=== PATIENT | female | born 1980 | race Caucasian/White ===

== ENCOUNTER 2018-10-12 20:28 | Outpatient (CLI) | payer OTHER | END 2018-10-12 20:29 | disposition home or self-care (01) | LOC: SC 20:28 | PROVIDERS: ATTEND Internal Medicine Pulmonary Disease | DX: R06.83 Snoring (principal) | CPT/HCPCS: 95810 ==

== ENCOUNTER 2018-11-17 13:35 | Outpatient (CLI) | payer OTHER ==
--- NOTE | 2018-11-17 16:17 | SLEEP CARE CONSULTATION ---
Information from patient questionnaire entered by Ana Hurd. I have reviewed and concur with the information entered by Ana Hurd. This document represents the service I personally performed and the decisions made by me, Sade Whaley RN, MSN, [employer]. History of Present Illness Initial [place] Sleepiness Scale score: 16 Current [place] Sleepiness Scale score: 13 Additional HPI information: ATILIO NAGEL returns for follow up of the recently performed polysomnography and patient was informed of the polysomnography findings. I explained the pathophysiology behind obstructive sleep apnea. Patient does not have sleep apnea and was advised how weight gain could increase the risk of developing sleep apnea in the future. She is currently at normal BMI weight. [ Patient has rare and light snoring. Snoring can be reduced by weight loss. Snoring can also be treated with an oral appliance from a dentist. If this is considered she is advised to check insurance coverage. I also have a list of accredited dentists if needed. In addition, an ENT evaluation can be do to see if other treatment is indicated. Currently patient states she has no problem breathing out of nose except when seasonal allergies. Patient counseled not drink alcohol less than 4 hours before bedtime as it can increase snoring and apnea. Patient does not drink alcohol. Patient was cautioned about risks of drowsy driving until sleepiness symptoms resolve. Patient denies drowsy driving. [facility] patient education on snoring and sleep apnea given and reviewed. Sleep Study - Polysomnography Polysomnography findings: The quality of the study is good. The patient had normal sleep efficiency. The sleep architecture was normal. Respiratory monitoring showed no significant sleep disordered breathing (AHI = 0.0) or hypoxia (helene oxygen saturation of 94 %). The patient slept adequately in supine position (supine AHI = 0.0; non- supine = 0.00). Snore was rare and light in intensity. There was no significant periodic leg movement of sleep. Cardiac rhythm was normal sinus rhythm without significant arrhythmia. No abnormal behavior (parasomnia) observed during the night. Allergies and Home Medications Known drug allergies: No Home medication list reviewed: Yes (none) Review of Systems Review of systems same as previous: Yes Physical Exam Blood Pressure: 100/60 Cuff size: regular Heart Rate: 63 O2 Saturation: 99 Height: 5 ft 1 in Weight (kg): 127 lb 9.6 oz Body Mass Index: 24.0 BMI Classification: Healthy weight Impression and Plan 1. Snoring, rare and light in intensity, but no significant sleep disordered breathing. Patient advised that often weight loss will reduce snoring as well as apnea risk. Currently she is at top of normal weight on BMI chart. An oral appliance can also be used for snoring. This would require a dental consultation. Patient is advised to check if insurance will cover if considering. An ENT consult can also be helpful to determine if any other treatment is an option. However at this time, patient denies any nasal breathing problems except when seasonal allergies. 2. Fatigue and excessive daytime sleepiness is reported. Thus patient is advised to follow up with PCP for further evaluation of her sleepiness symptoms to rule out other medical causes such as hypothyroidism, anemia, depression etc. She was also advised to consider going to bed a little earlier since her youngest generally wakes her at 4am and after feeding her, the patient is unable to return to sleep as her alarm is going off. She generally goes to bed at 9-10 pm so a bedtime of 9pm may allow her a little more sleep. I explained that most people require 7-9 hours of sleep for optimal mental and physical function. * Follow up with PCP for further evaluation of fatigue and sleepiness symptoms. * Do not gain weight * Avoid alcohol consumption near bedtime * The patient is cautioned about driving until sleepiness is completely resolved . * Return as needed. I spent 100% of this 15 minute visit face to face with the patient with greater than 50% of this was spent time counseling the patient and coordination of care.
[2018-11-17 16:18] VITALS: BP 100/60
== END 2018-11-17 13:36 | disposition home or self-care (01) ==
LOC: SC 13:35
PROVIDERS: ATTEND Nurse Practitioner Family
DX: R06.83 Snoring (principal); R53.83 Other fatigue; G47.10 Hypersomnia, unspecified
CPT/HCPCS: 99212; 99213